=== PATIENT | male | born 1975 | race Caucasian/White ===

== ENCOUNTER 2018-04-04 19:03 | Emergency (ER) | payer SELFPAY ==
[2018-04-04] MEDS ORDERED: ONDANSETRON 4 MG TAB.RAPDIS PO ONE (20:18)
[2018-04-04] MEDS ORDERED: FENTANYL CITRATE INJ/PF 100 MCG/2 ML AMPUL IV ONE ×2 (20:18→22:09)
--- NOTE | 2018-04-04 20:22 | ER Document Report ---
ED Fall - General Chief Complaint: Fall Injury Stated Complaint: FALL/BACK PAIN Time Seen by Provider: 04/04/18 20:14 Notes: Patient is a 42-year-old male comes emergency department for chief complaint of fall off a horse, he states the horse stopped, he fell over the front of the horse, he mainly landed on his back, he reports severe pain to his mid to lower back worse on the right side, with radiations of pain around to his abdomen. He denies head injury, vomiting, chest pain, difficulty breathing, incontinence. Past medical history of gastric bypass and cirrhosis of the liver , takes no blood thinners. Family at bedside. TRAVEL OUTSIDE OF THE [place] IN LAST 30 DAYS: No - Related data Allergies/Adverse Reactions: No Known Allergies Allergy (Verified 06/08/12 18:32) Past Medical History - General Information source: Patient, Relative - Social History Smoking Status: Never Smoker Drug Abuse: None Lives with: Family Family History: Reviewed & Not Pertinent - Past Medical History Cardiac Medical History: Reports: Hx Hypertension Denies: Hx Coronary Artery Disease, Hx Heart Attack Pulmonary Medical History: Denies: Hx Asthma, Hx Bronchitis, Hx COPD, Hx Pneumonia Neurological Medical History: Denies: Hx Cerebrovascular Accident, Hx Seizures Musculoskeltal Medical History: Denies Hx Arthritis Past Surgical History: Reports: Hx Abdominal Surgery - gastric bypass, Hx Cholecystectomy, Hx Orthopedic Surgery - neck, Hx Tonsillectomy. Denies: Hx Pacemaker - Immunizations Hx Diphtheria, Pertussis, Tetanus Vaccination: Yes Review of Systems - Review of Systems Constitutional: No symptoms reported EENT: No symptoms reported Cardiovascular: No symptoms reported Respiratory: No symptoms reported Gastrointestinal: See HPI Genitourinary: No symptoms reported Male Genitourinary: No symptoms reported Musculoskeletal: See HPI Skin: No symptoms reported Hematologic/Lymphatic: No symptoms reported Neurological/Psychological: No symptoms reported Physical Exam - Vital signs Vitals: Temp Pulse Resp BP Pulse Ox 98.7 F 102 H 20 130/91 H 98 04/04/18 19:35 04/04/18 19:35 04/04/18 19:35 04/04/18 19:35 04/04/18 19:35 - Notes Notes: GENERAL: Alert, interacts well. Patient moves gingerly and with a lot of pain, appears to be in pain. HEAD: Normocephalic, atraumatic. EYES: Pupils equal, round, and reactive to light. Extraocular movements intact. ENT: Oral mucosa moist, tongue midline. [Nares patent, no nasal septal hematoma , TM's intact.] NECK: Full range of motion. Supple. Trachea midline. LUNGS: Clear to auscultation bilaterally, no wheezes, rales, or rhonchi. No respiratory distress. HEART: Regular rate and rhythm. No murmur ABDOMEN: Soft, non-tender. Non-distended. Bowel sounds present in all 4 quadrants. No ecchymosis or other traumatic findings noted. EXTREMITIES: Moves all 4 extremities spontaneously. No edema, normal radial and dorsalis pedis pulses bilaterally. No cyanosis. BACK: Patient is very tender over the right mid to lower back mainly over the paraspinal area questionably over the lumbar area. Thoracic and cervical areas are nontender. No saddle anesthesia. Normal lower extremity exam with normal strength and range of motion, normal distal neurovascular exam. No open wounds. NEUROLOGICAL: Alert and oriented x3. Normal speech. [cranial nerves II through XII grossly intact]. PSYCH: Anxious SKIN: Warm, dry, normal turgor. No rashes or lesions noted. Course - Re-evaluation Re-evalutation: No evidence of head injury, chest injury, he reports radiation around his back to his abdomen but his abdomen is soft and benign. Pain with palpation over the back especially on the right side although no open wounds or noted trauma. Normal distal neurovascular exam. CBC, chemistry unremarkable except for mild leukocytosis, urinalysis does not show hematuria. CAT scan imaging shows traumatic contusion but no bleeding, perforation, fracture, or other abnormality noted. Patient is much more comfortable on reevaluation. No signs of any other injuries. Tachycardia resolved. Discussed workup in detail, treatment, expectations, follow-up, and return precautions with patient and significant other. They state understanding and agreement. - Vital Signs Vital signs: Temp Pulse Resp BP Pulse Ox 98.5 F 82 18 132/85 H 97 04/05/18 01:02 04/05/18 01:02 04/05/18 01:02 04/05/18 01:02 04/05/18 01:02 - Laboratory Result Diagrams: 04/04/18 20:42 04/04/18 20:42 Laboratory results interpreted by me: 06/12/18 06/12/18 20:42 21:15 WBC 13.6 H Seg Neutrophils % 78.3 H Lymphocytes % 11.1 L Absolute Neutrophils 10.6 H Urine Ketones TRACE H Discharge - Discharge Clinical Impression: Fall from horse Qualifiers: Encounter type: initial encounter Qualified Code(s): V80.010A - Animal-rider injured by fall from or being thrown from horse in noncollision accident, initial encounter Condition: Stable Disposition: HOME, SELF-CARE Additional Instructions: Your workup shows soft tissue injury but no fracture, dislocation, or bleeding is noted. Apply ice to the area of pain over your back for the first day, afterwards apply heat, take muscle relaxers, take pain medication if needed, take [id number] anti-inflammatories, and rest. Follow-up with primary care. Return if you worsen including numbness, vomiting, severe pain, passing out, or any other concerning or worsening symptoms. Prescriptions: Morphine Sulfate [Morphine Ir 15 Mg Tablet] 15 mg PO Q4HP PRN #12 tablet PRN Reason: Methocarbamol [Robaxin 750 mg Tablet] 750 mg PO Q6 #20 tablet
[2018-04-04 20:58] LABS: ABSOLUTE LYMPHOCYTES (AUTO) 1.5 10^3/uL (0.5-4.7); ABSOLUTE MONOCYTES (AUTO) 1.3 10^3/uL (0.1-1.4); ABSOLUTE NEUT (AUTO) 10.6 10^3/uL (1.7-8.2); BASOPHILS % (AUTO) 0.4 % (0-2); EOSINOPHILS % (AUTO) 0.4 % (0-6); HEMATOCRIT 46.8 % (37.9-51.0); HEMOGLOBIN 15.8 g/dL (13.5-17.0); LYMPHOCYTES % (AUTO) 11.1 % (13-45); MEAN CORPUSCULAR HEMOGLOBIN 29.7 pg (27.0-33.4); MEAN CORPUSCULAR HGB CONC 33.8 g/dL (32.0-36.0); MEAN CORPUSCULAR VOLUME 88 fl (80-97); MONOCYTES % (AUTO) 9.8 % (3-13); PLATELET COUNT 233 10^3/uL (150-450); RED BLOOD COUNT 5.32 10^6/uL (4.35-5.55); RED CELL DISTRIBUTION WIDTH 13.6 % (11.5-14.0); SEGMENTED NEUTROPHILS % (AUTO) 78.3 % (42-78); TOTAL CELLS COUNTED % (AUTO) 100 %; WHITE BLOOD COUNT 13.6 10^3/uL (4.0-10.5)
[2018-04-04 21:27] LABS: APPEARANCE,URINE CLEAR; BILIRUBIN,URINE NEGATIVE (NEGATIVE); COLOR,URINE YELLOW; GLUCOSE, URINE NEGATIVE (NEGATIVE); KETONES,URINE TRACE mg/dL (NEGATIVE); LEUKOCYTE ESTERASE,URINE NEGATIVE (NEGATIVE); NITRITE,URINE NEGATIVE (NEGATIVE); PROTEIN,URINE NEGATIVE (NEGATIVE); URINE SPECIFIC GRAVITY 1.018; UROBILINOGEN,URINE NEGATIVE mg/dL (<2.0)
[2018-04-04 21:34] LABS: ALANINE AMINOTRANSFERASE 38 U/L (21-72); ALBUMIN 4.5 g/dL (3.5-5.0); ALKALINE PHOSPHATASE 111 U/L (38-126); ANION GAP 16 (5-19); ASPARTATE AMINO TRANSFERASE 27 U/L (17-59); BILIRUBIN,DIRECT 0.3 mg/dL (0.0-0.4); BILIRUBIN,TOTAL 0.5 mg/dL (0.2-1.3); BLOOD UREA NITROGEN 13 mg/dL (7-20); CALCIUM 9.7 mg/dL (8.4-10.2); CARBON DIOXIDE 22 mmol/L (22-30); CHLORIDE 105 mmol/L (98-107); GLUCOSE 107 mg/dL (75-110); POTASSIUM 4.3 mmol/L (3.6-5.0); SODIUM 142.5 mmol/L (137-145); TOTAL PROTEIN 7.5 g/dL (6.3-8.2)
--- NOTE | 2018-04-04 23:02 | RADIOLOGY REPORT (SQ) ---
EXAM DESCRIPTION: CLINICAL HISTORY: 42 years Male fall off horse, severe back/abd pain COMPARISON: None. TECHNIQUE: Contiguous axial images obtained through the abdomen and pelvis following IV contrast. Reformatted images obtained. This exam was performed according to our department optimization program which includes automated exposure control, adjustment of the mA and/or kv according to patient size and/or use of iterative reconstruction technique. FINDINGS: The liver appears unremarkable. The spleen and pancreas appear unremarkable. No adrenal masses. The kidneys appear unremarkable. No hydronephrosis. The gallbladder is surgically absent. There is subcutaneous stranding over the right flank and buttock consistent with contusion. No underlying rib fracture is noted and there is no evidence to suggest acute fracture in the lumbar spine. No aneurysmal dilatation of the aorta. No bowel obstruction. The appendix is nonvisualized. Diverticulosis without evidence of diverticulitis. Fat-containing inguinal hernia on the left. No evidence of pneumothorax and the right lung base.. No significant free fluid noted. IMPRESSION: Soft tissue stranding consistent with contusion over the right flank and buttock No underlying fracture No evidence of abdominal or pelvic visceral injury
[2018-04-04] MEDS ORDERED: DIAZEPAM 5 MG TABLET PO ONE (23:14)
[2018-04-04] MEDS ORDERED: KETOROLAC TROMETHAMINE INJ/PF 30 MG/1 ML SDV IV ONE (23:14)
[2018-04-05 01:08] VITALS: BP 132/85
== END 2018-04-05 00:30 | disposition home or self-care (01) ==
LOC: ER 19:03
DX: M54.9 Dorsalgia, unspecified (principal); R10.9 Unspecified abdominal pain; V80.010A Animal-rider injured by fall from or being thrown from horse in noncollision accident, initial encounter; I10 Essential (primary) hypertension; Z98.84 Bariatric surgery status; Z90.49 Acquired absence of other specified parts of digestive tract
CPT/HCPCS: 96376; 99284; 96374; 96375; 86900; 86901; 36415; 86850; 85025; 80053; 81001; 74177; S0119; J3010; J1885